=== PATIENT | male | born 1970 | race Two or more races ===

== ENCOUNTER 2020-03-25 17:59 | Emergency (ER) | payer BC ==
[2020-03-25] MEDS ORDERED: Sodium Chloride 0.9% 10 ML Syringe FLUSH PRN (18:41)
--- NOTE | 2020-03-25 18:48 | EDM.PDOC ---
ED HPI GENERAL MEDICAL PROBLEM - General Chief Complaint: Neurological Problem Stated Complaint: LIGHTHEADED Time Seen by Provider: 03/25/20 18:30 Source of Information: Reports: Patient, RN Notes Reviewed History Limitations: Reports: No Limitations - History of Present Illness INITIAL COMMENTS - FREE TEXT/NARRATIVE: Patient is a 49-year-old male who presents to the ED for evaluation of his lightheadedness. He notes that he woke up this morning, and he felt lightheaded. He notes that his vision was blurred, and everything looked and felt wobbly. He states he also had a balance issue this morning. He states that this is since resolved itself. He did have one episode of nausea and vomiting. He is trying to keep himself hydrated and thinks he is okay on fluids. Does have a history of hypertension, he is on enalapril. He notes that he has not had any recent changes in medication. He states that his blood pressure at home was in the 160s systolically. His primary care provider is Dr. Pham. He states that when he closes his eyes this seems to make everything better. He also notes that if he sits still it makes it better. He denies any fevers or chills, nausea or diarrhea, any abdomen pain, any chest pain cough or shortness of breath. He has a history of GERD, hypertension, prediabetes and chronic back pain. Treatments WIRE TWISTER: Reports: Other (see below) Other Treatments WIRE TWISTER: advil - Related Data Allergies Allergy/AdvReac Type Severity Reaction Status Date / Time No Known Allergies Allergy Verified 03/25/20 18:34 Home Meds: Home Meds Enalapril [Vasotec] 0 mg PO BID 03/25/20 [History] Past Medical History Cardiovascular History: Reports: Hypertension Gastrointestinal History: Reports: GERD Musculoskeletal History: Reports: Back Pain, Chronic Endocrine/Metabolic History: Reports: Other (See Below) Other Endocrine/Metabolic History: pre-diabetic Social & Family History - Tobacco Use Smoking Status *Q: Never Smoker - Caffeine Use Caffeine Use: Reports: Coffee - Recreational Drug Use Recreational Drug Use: No ED ROS GENERAL - Review of Systems Review Of Systems: Comprehensive ROS is negative, except as noted in HPI. ED EXAM, GENERAL - Physical Exam Exam: See Below Exam Limited By: No Limitations General Appearance: Alert, WD/WN, No Apparent Distress Eye Exam: Bilateral Eye: EOMI, Normal Inspection, PERRL Ears: Normal External Exam Nose: Normal Inspection Throat/Mouth: Normal Inspection, Normal Lips, Normal Teeth, Normal Gums, Normal Oropharynx, Normal Voice, No Airway Compromise Head: Atraumatic, Normocephalic Neck: Normal Inspection, Supple, Non-Tender, Full Range of Motion Respiratory/Chest: No Respiratory Distress, Lungs Clear, Normal Breath Sounds, No Accessory Muscle Use, Chest Non-Tender Cardiovascular: Normal Peripheral Pulses, Regular Rate, Rhythm, No Murmur Peripheral Pulses: 2+: Radial (L), Radial (R) Extremities: Normal Inspection, Normal Capillary Refill Neurological: Alert, Oriented, Normal Cognition, No Motor/Sensory Deficits Psychiatric: Normal Affect, Normal Mood Skin Exam: Warm, Dry, Intact, Normal Color, No Rash EKG INTERPRETATION EKG Date: 03/25/20 Time: 18:19 Rhythm: NSR Rate (Beats/Min): 66 [place]: Normal P-Wave: Present QRS: Normal ST-T: Normal QT: Normal Comparison: NA - No Prior EKG EKG Interpretation Comments: Short VA interval questionable delta wave in V4 to suggest woke Parkinson White. P waves are inverted in II, III and aVL. With a borderline repolarization abnormality, otherwise no acute ST change appreciated. Reviewed by myself and Dr. Lea Course - Vital Signs Last Recorded V/S: Last Vital Signs Temp 97.7 F 03/25/20 19:37 Pulse 72 03/25/20 19:37 Resp 18 03/25/20 19:37 BP 153/91 H 03/25/20 19:37 Pulse Ox 96 03/25/20 19:37 - Orders/Labs/Meds Orders: Active Orders 24 hr Category Date Time Status EKG Documentation Completion [RC] STAT Care 03/25/20 18:40 Ordered Peripheral IV Care [RC] . DIRECTED Care 03/25/20 18:41 Ordered Sodium Chloride 0.9% [Saline Flush] Med 03/25/20 18:41 Active 10 ml FLUSH ASDIRECTED PRN Peripheral IV Insertion Adult [OM.PC] Stat Oth 03/25/20 18:41 Ordered Medication Orders Sodium Chloride (Saline Flush) 10 ml FLUSH ASDIRECTED PRN PRN Reason: Keep Vein Open Last Admin: 03/25/20 18:43 Dose: 10 ml Documented by: HOWAELI Labs: Laboratory Tests 03/25/20 03/25/20 Range/Units 18:30 18:30 WBC 8.13 (4.23-9.07) K/mm3 RBC 5.07 (4.63-6.08) M/mm3 Hgb 15.3 (13.7-17.5) gm/dl Hct 42.9 (40.1-51.0) % MCV 84.6 (79.0-92.2) fl MCH 30.2 (25.7-32.2) pg MCHC 35.7 H (32.2-35.5) g/dl RDW Std Deviation 37.5 (35.1-43.9) fL Plt Count 278 (163-337) K/mm3 MPV 9.6 (9.4-12.3) fl Neut % (Auto) 77.4 H (34.0-67.9) % Lymph % (Auto) 13.9 L (21.8-53.1) % [place] % (Auto) 7.7 (5.3-12.2) % Eos % (Auto) 0.4 L (0.8-7.0) Baso % (Auto) 0.2 (0.1-1.2) % Neut # (Auto) 6.29 H (1.78-5.38) K/mm3 Lymph # (Auto) 1.13 L (1.32-3.57) K/mm3 [place] # (Auto) 0.63 (0.30-0.82) K/mm3 Eos # (Auto) 0.03 L (0.04-0.54) K/mm3 Baso # (Auto) 0.02 (0.01-0.08) K/mm3 Sodium 131 L (136-145) mEq/L Potassium 2.9 L (3.5-5.1) mEq/L Chloride 96 L (98-107) mEq/L Carbon Dioxide 28 (21-32) mEq/L Anion Gap 9.9 (5-15) BUN 11 (7-18) mg/dL Creatinine 0.8 (0.7-1.3) mg/dL Est Cr Clr Drug Dosing 97.16 mL/min Estimated GFR (MDRD) > 60 (>60) mL/min BUN/Creatinine Ratio 13.8 L (14-18) Glucose 121 H (74-106) mg/dL Calcium 8.5 (8.5-10.1) mg/dL Magnesium 1.9 (1.8-2.4) mg/dl Total Bilirubin 0.9 (0.2-1.0) mg/dL AST 24 (15-37) U/L ALT 39 (16-63) U/L Alkaline Phosphatase 68 (46-116) U/L Total Protein 7.9 (6.4-8.2) g/dl Albumin 3.8 (3.4-5.0) g/dl Globulin 4.1 gm/dL Albumin/Globulin Ratio 0.9 L (1-2) Meds: Medications Generic Name Dose Route Start Last Admin Trade Name Freq PRN Reason Stop Dose Admin Sodium Chloride 10 ml 03/25/20 18:41 03/25/20 18:43 Saline Flush FLUSH 10 ml ASDIRECTED PRN Administration Keep Vein Open Discontinued Medications Generic Name Dose Route Start Last Admin Trade Name Freq PRN Reason Stop Dose Admin Meclizine HCl 25 mg 03/25/20 19:10 03/25/20 19:15 Antivert PO 03/25/20 19:11 25 mg ONETIME ONE Administration Potassium Chloride 40 meq 03/25/20 19:10 03/25/20 19:15 Klor-Con M20 PO 03/25/20 19:11 40 meq ONETIME ONE Administration - Re-Assessments/Exams Free Text/Narrative Re-Assessment/Exam: 03/25/20 18:47 Patient presents to the ED for evaluation of his lightheadedness. Clinical course would be suggestive of a case of vertigo. However we will get labs to rule out metabolic disturbance. EKG was taken and demonstrates no focal abnormalities. Patient's blood pressure was mildly elevated when he got here at 189/103, but as he has been sitting in the room, its decreased to 170 systolically. 03/25/20 19:10 The patient's potassium level is low at 2.9 blood pressures improved to 155/102. He will get 40 mEq p.o. potassium for supplementation, along with 25 mg me clizine for suspected vertigo. Will reassess once the meclizine has been given and time to work. Departure - Departure Time of Disposition: 19:42 Disposition: Home, Self-Care 01 Condition: Good Clinical Impression: Hypokalemia, Vertigo - Discharge Information *PRESCRIPTION DRUG MONITORING PROGRAM REVIEWED*: No *COPY OF PRESCRIPTION DRUG MONITORING REPORT IN PATIENT [place]IL[place]: No Instructions: Potassium Content of Foods, Vertigo, [id number] Referrals: Chris Pham MD [Primary Care Provider] - Forms: ED Department Discharge Additional Instructions: You were evaluated in the ER today regarding your lightheadedness and symptoms of vertigo. Laboratory evaluation was taken, and does demonstrate a low potassium of 2.9, you were given a one-time oral dose of this in the ER. Recommend you follow-up with Dr. Pham, sometime this week for a recheck of your labs to make sure the potassium level is going up as expected. You were given a list of potassium content of foods, please review this and try to supplement with your diet over the next few days. You were also given a medication called meclizine to help with the vertigo aspect of your dizziness. If this seems to provide your benefit, you may get this medication at any retail space like a pharmacy or [employer]. It is commonly marketed as Antivert or Bonine, it is near Benadryl or the Dramamine in the motion sickness aisle. Please return to the ER at any time if symptoms change or worsen. Sepsis Event Note (ED) - Evaluation Sepsis Screening Result: No Definite Risk - Focused Exam Vital Signs: Vital Signs Temp Pulse Resp BP Pulse Ox 03/25/20 19:37 97.7 F 72 18 153/91 H 96 03/25/20 18:59 57 L 16 153/96 H 96 03/25/20 18:21 98.0 F 66 20 189/103 H 95 - My Orders Last 24 Hours: My Active Orders 03/25/20 18:40 EKG Documentation Completion [RC] STAT 03/25/20 18:41 Peripheral IV Care [RC] . DIRECTED Sodium Chloride 0.9% [Saline Flush] 10 ml FLUSH ASDIRECTED PRN Peripheral IV Insertion Adult [OM.PC] Stat - Assessment/Plan Last 24 Hours: My Active Orders 03/25/20 18:40 EKG Documentation Completion [RC] STAT 03/25/20 18:41 Peripheral IV Care [RC] . DIRECTED Sodium Chloride 0.9% [Saline Flush] 10 ml FLUSH ASDIRECTED PRN Peripheral IV Insertion Adult [OM.PC] Stat
[2020-03-25] MEDS ORDERED: Potassium Chloride 20 MEQ Tab.ER PO ONE (19:10)
== END 2020-03-25 19:59 | disposition home or self-care (01) ==
LOC: JD.ED 17:59
DX: E87.6 Hypokalemia (principal); R42 Dizziness and giddiness; I10 Essential (primary) hypertension; Z79.899 Other long term (current) drug therapy
CPT/HCPCS: 36415; 80053; 83735; 85025; 93005; 99284; A9270; 93010